=== PATIENT | male | born 1945 | race Caucasian/White ===

== ENCOUNTER 2020-03-10 11:08 | Outpatient (CLI) | payer MEDICARE, OTHER, SELFPAY ==
--- NOTE | ~2020-03-10 | CT_ITS ---
EXAMINATION: CT lung screening DATE: 03/10/2020 11:41 INDICATION: Personal history of tobacco dependence,, 40 pack year history TECHNIQUE: Computed tomography (CT) of the chest was performed without intravenous contrast. The dose -length product (DLP) was 143.80 mGy-cm. Automated exposure control and iterative reconstruction tech nique were employed. COMPARISON: None FINDINGS: Scarring is present in the lung apices. There is mild emphysema. Lung nodules measure up to 3 mm in the left upper lobe. The lungs are free of focal airspace opacities. There is no pleural eff usion or pneumothorax. Calcified pulmonary nodules and calcified left hilar and mediastinal lymph nod es are consistent with old granulomatous disease. The heart size is normal. There are no pathological ly enlarged thoracic lymph nodes. Calcified coronary artery atherosclerosis is noted. Punctate calcif ications in an otherwise normal spleen likely represent healed granulomatous disease. The gallbladder is surgically absent. There are metallic foreign bodies in the soft tissues of the proximal left upp er extremity and left anterior chest wall. There is severe thoracic spondylosis. IMPRESSION: 1. Lung-RADS category 2: Benign appearance or behavior. Continue annual screening with noncontrast lo w-dose chest CT in 12 months. Reviewed, dictated and finalized at location A. F LEG OPERATOR IMPRESSION: 1. Lung-RADS category 2: Benign appearance or behavior. Continue annual screeni ng with noncontrast low-dose chest CT in 12 months.
== END 2020-03-10 11:09 | disposition home or self-care (01) ==
PROVIDERS: PCP Internal Medicine; Visit Provider Nurse Practitioner
DX: Z12.2 Encounter for screening for malignant neoplasm of respiratory organs (principal); Z87.891 Personal history of nicotine dependence
CPT/HCPCS: G0297

== ENCOUNTER → 2020-08-01 02:51 | Outpatient (CLI) | payer MEDICARE, OTHER, SELFPAY ==
[2020-08-01 19:37] LABS: SARS-CoV-2 RNA PCR Negative
== END ==
PROVIDERS: PCP Internal Medicine; Visit Provider Internal Medicine Gastroenterology
DX: Z01.812 Encounter for preprocedural laboratory examination (principal); Z20.822 Contact with and (suspected) exposure to COVID-19
CPT/HCPCS: C9803; U0003; U0005

== ENCOUNTER 2020-08-04 02:03 | Day surgery (SDC) | payer MEDICARE, OTHER, SELFPAY ==
[2020-04-25 12:50] VITALS: BMI 28.3
[2020-07-22 13:12] VITALS: BMI 29.5
[2020-08-04 07:03] VITALS: BMI 27.7
[2020-08-04 07:13] LABS: Glucose Point of Care 194 (65-105)
[2020-08-04] MEDS: LACTATED RINGERS 1,000 ML 150 ML IV CONT (07:16)
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
[2020-08-04 08:38] VITALS: BP 130/61; PULSE 79; RESP 18; O2SAT 97
[2020-08-04 08:48] VITALS: BP 130/81; PULSE 71; RESP 18; O2SAT 97
--- NOTE | 2020-08-04 08:56 | SUR.PHASEII ---
0838 Pt in second degree heartblock upon arrival to post-op. Dr. Askew made aware. Pt asymptomatic. States sometimes has heart palpitations at home and has a heart murmur. VS otherwise stable. No EKG ordered at this time. 0857 Pt continues to be asymptomatic. Now in SR. Dr. Askew ok to d/c. Pt understands to call PCP or go to ER if becomes symptomatic. Stated is scheduled to see laser engraver in coming weeks.
[2020-08-04 08:58] VITALS: BP 135/84; PULSE 77; RESP 20; O2SAT 98
== END 2020-08-04 09:15 | disposition home or self-care (01) ==
PROVIDERS: PCP Internal Medicine; Visit Provider Internal Medicine Gastroenterology
PROC: 0DJD8ZZ Inspection of Lower Intestinal Tract, Via Natural or Artificial Opening Endoscopic (ICD-10-PCS; CPT 45378; principal; 2020-08-04 08:15)
DX: Z12.11 Encounter for screening for malignant neoplasm of colon (principal); Z85.038 Personal history of other malignant neoplasm of large intestine; I35.0 Nonrheumatic aortic (valve) stenosis; Z87.891 Personal history of nicotine dependence; Z79.899 Other long term (current) drug therapy
CPT/HCPCS: G0105; 82948; J2001; J2704; J7120

== ENCOUNTER → 2020-09-05 04:44 | Outpatient (CLI) | payer MEDICARE, OTHER, SELFPAY ==
[2020-09-05 18:47] LABS: SARS-CoV-2 RNA PCR Negative
== END ==
PROVIDERS: PCP Internal Medicine; Visit Provider Internal Medicine Cardiovascular Disease
DX: Z01.812 Encounter for preprocedural laboratory examination (principal); Z20.822 Contact with and (suspected) exposure to COVID-19
CPT/HCPCS: C9803; U0003; U0005

== ENCOUNTER 2020-09-08 01:27 | Day surgery (SDC) | payer MEDICARE, OTHER, SELFPAY ==
[2020-09-05 14:30] VITALS: BMI 28.4
[2020-09-08] VITALS (8 sets, daily range): BP systolic 123–156; BP diastolic 71–94; PULSE 73–81; RESP 13–25; TEMP 35.7; O2SAT 95–100; BMI 28.5
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
--- NOTE | 2020-09-08 09:14 | WPDTEECHO ---
MADELINE TransEsophageal Echocardiogram Date of procedure: 09/08/20 Procedure Type: 1. Moderate sedation 2. Multiplanar transesophageal echocardiography with color flow and pulse wave Doppler 3. Agitated saline study Diagnosis: Aortic stenosis Indications: Aortic stenosis Image Quality: Good Findings: After discussing the risks, benefits alternatives of the procedure patient agreed both verbal and written informed consent. The risks discussed included esophageal rupture, need for surgery, , adverse reaction to anesthesia, bleeding, pain, infection. After establishing continuous monitoring manager, pulse oxygenation and serial blood pressure assessments procedure was started. Medications used: Hurricaine spray to hypopharynx x2 for topical anesthetic. 3 mg of Versed and 50 mcg of fentanyl given in divided dosages. Procedure start time 8:56 a.m. Procedure stop time 9:11 a.m. Medications were administered patient was monitored by Pat Dawson RN Blood loss: None Complications: None Findings: Normal left ventricular size and function with ejection fraction 55-65%. Normal mitral valve mild mitral regurgitation. Tricuspid valve is normal with mild tricuspid regurgitation. Pulmonic valve normal with trivial pulmonic insufficiency. The aortic root is normal in size measuring 3.0 cm. There is no pericardial effusion. Left atrial appendage is normal without mass or thrombus velocities up to 90-100 centimeters/second. Atrial septum is thin hypermobile and borderline aneurysmal. Agitated saline study was performed which was positive for [id number] shunting. There is color-flow evidence of a PFO also. The left ventricle is normal in size and function. Left atrium is mildly enlarged. Right atrium is normal. The aortic valve is trileaflet. There is moderate aortic valve calcification. The averaged planimetered aortic valve area is 1.1 -1.2 centimeter squared. Somewhat difficult plan in a tree due to reverberation artifact and dropout from calcification from the valve. Conclusions: 1. Moderate sedation 2. Normal left ventricular size and function 3. Atrial septum is thin and hypermobile with evidence of a PFO via agitated saline and color flow 4. Moderate and approaching severe aortic stenosis 5. Mild mitral and tricuspid regurgitation.
== END 2020-09-08 10:09 | disposition home or self-care (01) ==
PROVIDERS: PCP Internal Medicine; Visit Provider Internal Medicine Cardiovascular Disease
PROC: (CPT 93312; principal; 2020-09-08 08:30)
DX: I35.0 Nonrheumatic aortic (valve) stenosis (principal); I34.0 Nonrheumatic mitral (valve) insufficiency; I70.0 Atherosclerosis of aorta; I36.1 Nonrheumatic tricuspid (valve) insufficiency; I27.20 Pulmonary hypertension, unspecified; R00.2 Palpitations; R07.89 Other chest pain; Z90.49 Acquired absence of other specified parts of digestive tract; M19.90 Unspecified osteoarthritis, unspecified site; G47.30 Sleep apnea, unspecified; R01.1 Cardiac murmur, unspecified; Z87.891 Personal history of nicotine dependence; Z79.82 Long term (current) use of aspirin; Z79.84 Long term (current) use of oral hypoglycemic drugs; E11.51 Type 2 diabetes mellitus with diabetic peripheral angiopathy without gangrene; I49.3 Ventricular premature depolarization
CPT/HCPCS: 93312; 93320; 93325; J2250; J3010; J7040

== ENCOUNTER 2020-12-18 16:41 | Outpatient (CLI) | payer MEDICARE, OTHER, SELFPAY ==
[2020-12-18 17:20] LABS: Basophils Absolute Auto 0.1 K/mm3 (0.0-0.1); Eosinophils Absolute Auto 0.2 K/mm3 (0-0.3); Eosinophils Percent Auto 2.8 % (0-4.4); Hemoglobin 11.6 g/dL (14.0-18.0); Immature Granulocyte Absolute 0.04 K/mm3 (0.00-0.031); Immature Granulocyte Percent A 0.5 % (0-0.5); Lymphocytes Absolute Auto 1.69 K/mm3 (0.9-3.2); Lymphocytes Percent Auto 21.9 % (18.3-44.2); Mean Corpuscular HGB Conc 34.1 g/dl (32-36); Mean Corpuscular Hemoglobin 31.7 pg (26-34); Mean Corpuscular Volume 92.9 fl (80-100); Mean Platelet Volume 9.8 fl (7.4-10.4); Monocytes Absolute Auto 0.5 K/mm3 (0.1-0.6); Monocytes Percent Auto 6.9 % (2.6-8.5); Neutrophils Absolute Auto 5.2 K/mm3 (1.3-6.7); Neutrophils Percent Auto 66.9 % (45.5-73.1); Platelet Count Result 203 k/mm3 (150-375); Red Blood Count 3.66 M/mm3 (4.6-6.20); Red Cell Distribution Width 13.9 % (11.5-14.5); White Blood Count 7.7 K/mm3 (4.5-10.0)
[2020-12-18 17:28] LABS: Alanine Aminotransferase 21 U/L (4-50); Albumin Level 4.9 g/dL (3.5-5.1); Alkaline Phosphatase 70 U/L (38-126); Anion Gap 11 mmol/L (8-16); Aspartate Amino Transferase 33 U/L (17-59); Bilirubin,Total 0.4 mg/dL (0.2-1.3); Blood Urea Nitrogen 17 mg/dL (9-20); Calcium 9.5 mg/dL (8.4-10.2); Carbon Dioxide 22 mmol/L (22-30); Chloride 106 mmol/L (98-107); Estimated Glomerular Filt Rate > 60; Glucose 98 mg/dL (65-110); Potassium 3.7 mmol/L (3.4-5.0); Sodium 139 mmol/L (137-145)
== END 2020-12-18 16:42 | disposition home or self-care (01) ==
PROVIDERS: PCP Internal Medicine; Visit Provider Internal Medicine Cardiovascular Disease
DX: I35.0 Nonrheumatic aortic (valve) stenosis (principal); R07.9 Chest pain, unspecified
CPT/HCPCS: 36415; 80053; 85025

== ENCOUNTER 2020-12-23 01:15 | Day surgery (SDC) | payer MEDICARE, OTHER, SELFPAY ==
[2020-12-22 11:17] VITALS: BMI 28.6
[2020-12-23] VITALS (24 sets, daily range): BP systolic 119–152; BP diastolic 67–93; PULSE 65–83; RESP 12–21; TEMP 36.1; O2SAT 96–99; BMI 27.8
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
--- NOTE | 2020-12-23 10:01 | WPDHPUPDATE1 ---
History and Physical Update Update Date/Time: 12/23/20 10:01 History and Physical has been reviewed, including an updated exam of the patient. There are NO changes in the patient's condition. Risks, benefits, and alternatives have been discussed and questions answered. Patient agrees to proceed with procedure.
--- NOTE | 2020-12-23 10:57 | WPDCARDPROC ---
Cardiac Cath Procedure Note Date of procedure:: 12/23/20 Performing physician:: Raul Chavez MD Procedure Procedure performed:: RIGHT AND LEFT HEART CATHETERIZATION AND CORONARY ANGIOGRAM REPORT DATE OF PROCEDURE: 12/23/2020 INDICATION FOR PROCEDURE: chest pain, aortic stenosis BRIEF CLINICAL HISTORY: 75-year-old male with aortic stenosis, hypertension, diabetes mellitus, dyslipidemia. Patient was referred by Dr. Xiong for right and left heart catheterization in the setting of chest pain with features somewhat atypical for ischemia. His echocardiogram from 08/27/2020 reportedly showed normal LV systolic function, grade 2 diastolic dysfunction, aortic stenosis with peak velocity 3.9 m/sec, mean gradient 31 mmHg, valve area 0.92 cm2. Subsequent MADELINE from 09/08/2020 reportedly showed valve area 1.1-1.2 by planimetry. Benefits and risks of the procedure were discussed with the patient in depth, and informed consent was obtained prior to the procedure. Risks of the procedure include but are not limited to vascular complications including groin hematoma, retroperitoneal bleed, vessel perforation; periprocedural SD, cardiac arrhythmias, stroke, contrast induced nephropathy, cardiac arrhythmias, pulmonary hemorrhage and . After discussing all the benefits, risks and alternatives, patient was willing to proceed with the procedure. PROCEDURES PERFORMED: 1. Left heart catheterization- Selective left and right coronary angiogram; left ventriculogram and hemodynamic assessment 2. Right heart catheterization with hemodynamic assessment 3. Moderate sedation-CPT code 98619 MODERATE SEDATION: Midazolam 2 mg; fentanyl 50 mcg; Start time 1010 , Stop time ; Total [id number]-[id number] time 34 minutes; Mouna Henley RN was trained observer for moderate sedation. ACCESS SITE: Right common femoral artery and vein PROCEDURE NOTE: After obtaining informed consent, patient was brought to catheterization lab and prepped and draped in a usual sterile manner. After local anesthesia with lidocaine, right common femoral artery access was taken with micropuncture needle followed by insertion of a 6 [place] 45 cm sheath. The long sheath was used to perform simultaneous LV and aortic pressures for transaortic gradients. Dual-lumen pigtail is currently on recall. Right common femoral venous access was taken with micropuncture needle followed by insertion of a 7 [place] sheath. Right heart catheterization was performed using C [place] catheter. Pressures were measured in the right atrium, right ventricle, pulmonary artery, pulmonary capillary. O2 saturations were taken from the femoral artery, right atrium, right ventricle, pulmonary artery. Cardiac output was measured using Sav[place]ah's method. After completion of right heart catheterization, attention was shifted to the left heart catheterization. Selective left and right coronary angiogram was performed using 5 [place] JL4 and JR4 catheters respectively. Orthogonal views were taken. Next, a 5 [place] pigtail catheter was advanced in the LV cavity and was flushed with normal saline. LV pressure measurement was performed. After this, Simultaneous left ventriculogram and intra-aortic pressures were measured to the pigtail and side port of the long sheath. After completion of right and left heart catheterization including hemodynamic assessment, the sheaths were secured in place, and will be taken out in the lab clerk holding area. Manual pressure will be used for local hemostasis. Patient tolerated procedure well without any immediate procedure related complications. FINDINGS: LEFT HEART CATHETERIZATION: LEFT MAIN CORONARY: The left main coronary artery is a medium caliber vessel without significant focal stenosis. The vessel bifurcates into LAD and left circumflex branches. LEFT ANTERIOR DESCENDING ARTERY: The LAD is a medium caliber vessel, tapers distally and becomes a small caliber vessel and reaches LV
--- NOTE | 2020-12-23 16:06 | SUR.PHASEII ---
written d/c instructions given to patient. all questions and concerns address. d/c instructions given to over the phone as well as updated time of d/c machine operator picker. patient's site wnl. dressing d/c/i. soft/ no hematoma noted.
--- NOTE | 2020-12-23 18:48 | SUR.PHASEII ---
Pt departs via wheelchair to private car where is to drive patient home from today's visit. DC instructions reviewed with patient by KELI Freire. IV catheter removed intact. Bleeding controlled. VSS upon DC.
== END 2020-12-23 18:42 | disposition home or self-care (01) ==
PROVIDERS: PCP Internal Medicine; Visit Provider Internal Medicine Cardiovascular Disease
PROC: 4A023N8 Measurement of Cardiac Sampling and Pressure, Bilateral, Percutaneous Approach (ICD-10-PCS; CPT 93453; principal; 2020-12-23 10:00)
DX: I35.0 Nonrheumatic aortic (valve) stenosis (principal); R07.9 Chest pain, unspecified; Z87.891 Personal history of nicotine dependence
CPT/HCPCS: 93460; C1760; C1887; C1894; J0461; J1644; J2250; J3010; J7040

== ENCOUNTER 2021-04-02 09:46 | Outpatient (CLI) | payer MEDICARE, OTHER, SELFPAY ==
--- NOTE | ~2021-04-02 | US_ITS ---
EXAMINATION: US thyroid EXAM DATE: 04/02/2021 10:12 INDICATION: E04.1 - Nontoxic single thyroid nodule . TECHNIQUE: Multiple grayscale and Doppler images of the thyroid were obtained (by a technologist who performed the scan) and subsequently reviewed. Individual nodules and recommendations may be reporte d in accordance with TI-RADS system as designated by the 2017 ACR White Paper TI-RADS committee. The re is no prior study for comparison. FINDINGS: The right thyroid lobe measures 4.4 x 1.7 x 1.4 cm, the left measuring 4.4 x 1.6 x 1.1 cm, mild thyro megaly. Mildly diffusely heterogeneous thyroid with couple of tiny cysts inside, not clinically signi ficant. Additional scanning was obtained at symptomatic region which was self-limited to the thyroid, left of midline annotated anterior area of lump. There is a focal mass in this location which is predominant ly cystic but with thick wall and septation, measuring 2.6 x 2.0 x 1.9 cm. Reportedly this was contig uous to the hyoid bone. Differential diagnosis includes necrotic lymphadenopathy, thyroglossal duct c yst, branchial cleft cyst. Necrotic lymphadenopathy can be caused by cancer or infection. No enlarged internal jugular chain lymph nodes identified adjacent to the thyroid. IMPRESSION: 1. Complex cystic anterior neck mass with differential diagnosis including necrotic lymphadenopathy, thyroglossal duct cyst, branchial cleft cyst. Recommend CT neck with contrast for further evaluation, and subsequent ENT consult. 2. Mild thyromegaly. Reviewed, dictated and finalized at location A. E AND SKIP CAR OPERATOR IMPRESSION: 1. Complex cystic anterior neck mass with differential diagnosis including necr otic lymphadenopathy, thyroglossal duct cyst, branchial cleft cyst. Recommend C T neck with contrast for further evaluation, and subsequent ENT consult. 2. Mild thyromegaly.
== END 2021-04-02 09:47 | disposition home or self-care (01) ==
LOC: ANHIMG 09:49
PROVIDERS: PCP Internal Medicine; Visit Provider Nurse Practitioner
DX: E04.1 Nontoxic single thyroid nodule (principal)
CPT/HCPCS: 76536

== ENCOUNTER 2021-04-10 07:20 | Outpatient (CLI) | payer MEDICARE, OTHER, SELFPAY ==
--- NOTE | ~2021-04-10 | CT_ITS ---
EXAMINATION: CT soft tissue neck chest w EXAM DATE: 04/10/2021 08:05 INDICATION: R22.1 - Localized swelling, mass and lump, neck. Abnormal ultrasound. TECHNIQUE: Spiral CT of the neck and chest was performed following intravenous injection of 75 mL Omn ipaque 350. Axial, coronal and sagittal images of the neck were reviewed. Axial, coronal and sagitt al images of the chest were reviewed. Coronal maximum intensity pixel images of chest reviewed. The dose-length product (DLP) for this examination was 1070.03 mGy-cm. The exposure was tailored accord ing to patient size (auto mA exposure control), and iterative reconstruction (ASIR) was used as addit ional dose reduction technique. Comparison is made to prior examination from 03/10/2020 (chest CT). FINDINGS: NECK: There is a cystic mass along the inferior margin of the hyoid bone, essentially located between the hyoid and thyroid cartilage measuring 2.1 x 1.8 x 2.4 cm. 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 Mild wall thickening to this was identified on ultrasound, not we ll appreciated here. No enhancing mural nodule. The thyroid gland is unremarkable. The submandibul ar and parotid glands are symmetric. The airway is unremarkable. Parapharyngeal and pre-glottic fat planes are preserved. The opacified vasculature is patent. Mild bilateral carotid arterial scl erosis without stenosis. The orbits are unremarkable. Visualized sinuses and mastoid air cells are well aerated. There is cervical spondylosis. CHEST: Biapical scarring unchanged. Some other small scattered postinfectious residua. There are no pleural or pericardial effusions. Tracheobronchial tree is patent. There is no mediastinal, hilar or axillary lymphadenopathy. There is no pneumothorax. Heart normal in size. Dense aortic valv e calcifications. The main, central pulmonary arteries are dilated which can indicate elevated pulmon carlos arterial pressure, pulmonary arterial hypertension. Aorta is normal in caliber. There is hepatic steatosis. Cholecystectomy clips. There is moderate thoracic spondylosis without osteoblastic or os teolytic lesions identified. Patient has diffuse idiopathic skeletal hyperostosis (DISH). IMPRESSION: 1. 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 Con photography professor ENT consult. 2. Dilated pulmonary arteries, pulmonary arterial hypertension. 3. Lung parenchymal postinfectious residua. 4. Hepatic steatosis. Reviewed, dictated and finalized at location B. DECK INSTALLER IMPRESSION: 1. Cystic anterior neck mass, location and appearance most suggestive of thyro glossal duct cyst. Consider ENT consult. 2. Dilated pulmonary arteries, pulmonary arterial hypertension. 3. Lung parenchymal postinfectious residua. 4. Hepatic steatosis.
[2021-04-10 08:01] LABS: Estimated Glomerular Filt Rate > 60
== END 2021-04-10 07:21 | disposition home or self-care (01) ==
PROVIDERS: PCP Internal Medicine; Visit Provider Nurse Practitioner
DX: R22.1 Localized swelling, mass and lump, neck (principal); K76.0 Fatty (change of) liver, not elsewhere classified
CPT/HCPCS: 70491; 71260; Q9967

== ENCOUNTER 2021-05-04 07:41 | Outpatient (CLI) | payer MEDICARE, OTHER, SELFPAY ==
[2021-05-04 08:24] LABS: Anion Gap 9 mmol/L (8-16); Blood Urea Nitrogen 15 mg/dL (9-20); Calcium 8.6 mg/dL (8.4-10.2); Carbon Dioxide 25 mmol/L (22-30); Chloride 105 mmol/L (98-107); Estimated Glomerular Filt Rate > 60; Glucose 196 mg/dL (65-110); Potassium 3.8 mmol/L (3.4-5.0); Sodium 139 mmol/L (137-145)
== END 2021-05-04 07:42 | disposition home or self-care (01) ==
LOC: ANHSURGERY 07:45
PROVIDERS: Anesthesiology; PCP Internal Medicine; Visit Provider Otolaryngology
DX: E11.9 Type 2 diabetes mellitus without complications (principal); Z01.818 Encounter for other preprocedural examination
CPT/HCPCS: 36415; 80048

== ENCOUNTER 2021-05-07 00:44 | Day surgery (SDC) | payer MEDICARE, OTHER, SELFPAY ==
[2021-05-01 13:37] VITALS: BMI 29.2
--- NOTE | 2021-05-01 13:46 | PC.NURSE ---
Report to the Outpatient Waiting Room, entrance under the green pavilion located off [facility], at time __0700 on date __05/07/21 . OR Time: ___09 . - You will be asked a series of questions to screen for COVID 19 for your protection. - A mask is required within the hospital. - No visitors are allowed at this time. Preoperative COVID Testing Requirements: No COVID Test needed if: (proof is required; if not received patient will have Rapid Test prior to entry) - Patient has received COVID Vaccine at least 14 days prior to procedure date or - Patient has positive COVID test result within last 90 days of surgery date. COVID Test needed if above criteria is not met If not COVID vaccinated a COVID test must be conducted within 72 hours of surgery and patient is asked to isolate self from time of testing until procedure. You will go to the [facility] for your COVID testing. The [facility] is located at the corner of [address] [facility]. You will only be called if COVID results are positive and your surgeon may reschedule your elective surgery date. Patients may have clear liquids (water, carbonated beverages, clear teas, apple juice) until 3 hours prior to surgery with a maximum of 20 ounces. - No food from midnight until time of surgery - Infants may have breast milk until 4 hours before surgery, formula 6 hours prior to surgery. - Children will be allowed to drink immediately following surgery. If applicable, please bring a bottle or sippy cup to assist with drinking. Juice, water, soda, and popsicles are readily available. For infants on formula, please bring formula the day of surgery. Pacifiers are allowed. Take the following medications with a SIP of water the morning of surgery: ____NONE Medications to discontinue per physician _PT STATES HOLD ASPIRIN 7 DAYS PRE OP PER DR MARIO, ALL VITAMINS AND SUPPLEMENTS 3 DAYS PRE OP Date to take last dose___ASPIRIN 04/29/21 VITAMINS 05/03/21 Please no make-up, nail angolan, hairspray, perfume, deodorant, or body powder the day of surgery. No jewelry (including any body piercings) or valuables the day of surgery, leave them at home. Please take a shower or bath the night before, or the morning of, surgery with an antibacterial soap. Wear comfortable, loose fitting clothing. Children are encouraged to wear pajamas. - Jewelry must be removed prior to entering the operating room. Rings and piercings that are not removed may be cut off. - The hospital will not accept responsibility for valuables. - Please leave all valuables, including medications, at home the day of surgery. If you are going home after surgery, a licensed catering truck driver must drive you home. - NO public transportation without another adult. - We recommend that an adult stay with you for 24 hours following discharge. - We also recommend that you do not drive, make important decision, drink alcoholic beverages, or take any drugs that were not prescribed by your health care provider for at least 24 hours after your discharge time. For Pediatric surgeries, we recommend two adults accompany the child home (only one inside the building at this time). Follow any additional instructions given to you from your surgeon. Telephone instructions given to _PATIENT and asked if any additional questions and then verbalized understanding. Patient advised to call surgeon office or pre surgery nurse liaison [phone] if any additional questions.
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
[2021-05-07] VITALS (10 sets, daily range): BP systolic 126–159; BP diastolic 64–89; PULSE 72–96; RESP 12–19; TEMP 36.1–36.3; O2SAT 96–100
--- NOTE | 2021-05-07 05:58 | WPDHPUPDATE1 ---
History and Physical Update Update Date/Time: 05/07/21 05:58 History and Physical has been reviewed, including an updated exam of the patient. There are NO changes in the patient's condition. Risks, benefits, and alternatives have been discussed and questions answered. Patient agrees to proceed with procedure.
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
[2021-05-07] MEDS: LACTATED RINGERS 1,000 ML 30 ML IV CONT (08:04)
[2021-05-07 08:12] LABS: Glucose Point of Care 193 mg/dl (65-105)
[2021-05-07] MEDS: LIDO 1%/EPINEPHRINE 1:100,000 50 ML VIAL INFILTRATE (08:56)
[2021-05-07] MEDS: NEOMYCIN/POLYMYXIN/BACITRACIN OINTMENT 15 GM TUBE 1 APPLIC TOPICAL (09:00)
--- NOTE | 2021-05-07 09:44 | W.PM.PROC2 ---
Procedure Note - Detailed Date of Procedure 05/07/21 Pre-op Diagnosis thyroglossal duct cyst Post-op Diagnosis same Procedure Performed Sasha procedure excision thyroglossal duct cyst with portion of the hyoid bone Surgeon Clayton Blackwell MD Description of Procedure Patient was prepped and draped after induction general anesthesia horizontal incision made over the prominence of the cystic mass that was at the level of the hyoid bone subplatysmal flaps elevated midline strap muscles were divided the cyst was identified dissected free by sharp dissection it attachment the hyoid bone was identified the hyoid bone was skeletonized Cooper scissors used to clamp to bisect the hyoid bone in 2 areas the cyst and the hyoid bone were removed in its entirety a drain placed in hemostasis was obtained with bipolar cautery closed in layers of 3-0 chromic in the above the hyoid bone and then a drain placed in and closed in layers
[2021-05-07 10:05] LABS: Glucose Point of Care 175 mg/dl (65-105)
[2021-05-07] MEDS: fentaNYL CITRATE INJ (*CRX) 100 MCG/2 ML VIAL 25 MCG IV PUSH ×4 (10:37→10:52)
[2021-05-07] MEDS: oxyCODONE (*CRX) 5 MG/5 ML ORAL SOLN IR PO (12:05)
== END 2021-05-07 12:25 | disposition home or self-care (01) ==
PROVIDERS: PCP Internal Medicine; Visit Provider Otolaryngology
PROC: (CPT 60280; principal; 2021-05-07 08:30)
DX: Q89.2 Congenital malformations of other endocrine glands (principal); E11.9 Type 2 diabetes mellitus without complications; I10 Essential (primary) hypertension; G47.33 Obstructive sleep apnea (adult) (pediatric); I35.0 Nonrheumatic aortic (valve) stenosis; Z87.891 Personal history of nicotine dependence; Z79.84 Long term (current) use of oral hypoglycemic drugs; Z79.82 Long term (current) use of aspirin; Z85.038 Personal history of other malignant neoplasm of large intestine
CPT/HCPCS: 60280; 82948; 88305; A9270; J0330; J1100; J2405; J2704; J3010; J7120

== ENCOUNTER 2022-12-22 09:45 | Outpatient (RCR) | payer MEDICARE, OTHER, SELFPAY | END 2023-01-10 17:14 | disposition home or self-care (01) | LOC: ANHCPREHAB 09:45 | PROVIDERS: PCP Family Medicine; Visit Provider Internal Medicine Cardiovascular Disease | DX: Z95.2 Presence of prosthetic heart valve (principal) | CPT/HCPCS: 93798 ==

== ENCOUNTER 2023-01-04 12:25 | Outpatient (CLI) | payer MEDICARE, OTHER, SELFPAY ==
--- NOTE | ~2023-01-04 | US_ITS ---
EXAMINATION: US carotid duplex BI DATE: 01/04/2023 13:23 INDICATION: Left carotid bruit TECHNIQUE: Grayscale, color Doppler, and pulsed Doppler images of the cervical carotid arteries were obtained. The degree of vessel stenosis is placed in one of the following categories: normal, <50%, 5 0-69%, >=70% but less than near-occlusion, near-occlusion, or total occlusion. Note that percent sten osis relative to normal distal artery lumen diameter is indirectly measured from velocity measurement s as described by Lv, et al. Radiology 2003; 229:340-346. COMPARISON: 08/21/2018 FINDINGS: RIGHT: The right common carotid artery (CCA) peak systolic velocity (PSV) is 112 cm/s. The right internal ca rotid artery (ICA) PSV is 73 cm/s. The right ICA end-diastolic velocity (EDV) is 25 cm/s. The right I CA/CCA PSV ratio is 0.6. Grayscale and color Doppler images yield an estimate of <50% diameter reduct ion from plaque in the ICA. The external carotid artery (ECA) PSV is 115 cm/s. There is antegrade kanchan w in the right vertebral artery. LEFT: The left CCA PSV is 95 cm/s. The left ICA PSV is 81 cm/s. The left ICA EDV is 28 cm/s. The left ICA/C CA PSV ratio is 0.9. Grayscale and color Doppler images yield an estimate of <50% diameter reduction from plaque in the ICA. The ECA PSV is 114 cm/s. There is antegrade flow in the left vertebral artery . IMPRESSION: 1. <50% stenosis in the right internal carotid artery. 2. <50% stenosis in the left internal carotid artery. Reviewed, dictated and finalized at location A.
== END 2023-01-04 12:26 | disposition home or self-care (01) ==
PROVIDERS: PCP Family Medicine; Visit Provider Internal Medicine Cardiovascular Disease
DX: R09.89 Other specified symptoms and signs involving the circulatory and respiratory systems (principal); I65.23 Occlusion and stenosis of bilateral carotid arteries
CPT/HCPCS: 93880

== ENCOUNTER 2023-12-23 04:34 | Day surgery (SDC) | payer MEDICARE, OTHER, SELFPAY ==
[2023-12-02 09:51] VITALS: BMI 26.7
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
[2023-12-23 07:53] VITALS: BP 147/82; PULSE 77; RESP 18; TEMP 36; O2SAT 99
[2023-12-23 08:00] LABS: Glucose Point of Care 133 mg/dl (65-105)
[2023-12-23] MEDS: LACTATED RINGERS 1,000 ML 150 ML IV CONT (08:09)
[2023-12-23] MEDS: GENTAMICIN 80MG/SOD CHL 50 ML 80 MG/50 ML BAG 100 MG IVPB (08:15)
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
[2023-12-23] MEDS: AMPICILLIN 2 GM/NS 100 ML 2 GM/100 ML BAG IVPB (08:42)
[2023-12-23 08:59] VITALS: BP 117/64; PULSE 76; RESP 18; O2SAT 98
[2023-12-23 09:09] VITALS: BP 116/65; PULSE 65; RESP 18; O2SAT 99
[2023-12-23 09:19] VITALS: BP 125/66; PULSE 65; RESP 18; O2SAT 100
== END 2023-12-23 09:35 | disposition home or self-care (01) ==
PROVIDERS: PCP Internal Medicine; Visit Provider Internal Medicine Gastroenterology
PROC: 0DJD8ZZ Inspection of Lower Intestinal Tract, Via Natural or Artificial Opening Endoscopic (ICD-10-PCS; CPT 45378; principal; 2023-12-23 09:00)
DX: Z08 Encounter for follow-up examination after completed treatment for malignant neoplasm (principal); D12.0 Benign neoplasm of cecum; Z98.0 Intestinal bypass and anastomosis status; Z90.49 Acquired absence of other specified parts of digestive tract; Z85.038 Personal history of other malignant neoplasm of large intestine; I44.1 Atrioventricular block, second degree; G47.33 Obstructive sleep apnea (adult) (pediatric); E11.9 Type 2 diabetes mellitus without complications; Z95.4 Presence of other heart-valve replacement; Z87.891 Personal history of nicotine dependence; Z79.84 Long term (current) use of oral hypoglycemic drugs; Z79.82 Long term (current) use of aspirin
CPT/HCPCS: 45385; 82948; 88305; J0290; J1580; J2704; J7120